=== PATIENT | female | born 1995 | race Caucasian/White ===

== ENCOUNTER 2021-05-16 00:25 | Emergency (ER) | payer OTHER ==
[~2021-05-16] VITALS: Ht 165.1 cm; Wt 68.9 kg
--- NOTE | 2021-05-16 00:25 | NUR ---
PT BIB [facility], PREBOOK. TAKEN TO CHAIR
[2021-05-16 00:29] VITALS: BP 132/89
--- NOTE | 2021-05-16 00:58 | NUR ---
Dr. Mcgraw examining patient.
--- NOTE | 2021-05-16 01:04 | NUR ---
PT TAKEN TO BED 9
[2021-05-16] MEDS ORDERED: ALBUTEROL SULFATE/IPRATROPIU 3 ML SOL IH ONE (01:05)
[2021-05-16] MEDS ORDERED: ACETAMINOPHEN EXTRA STRENGTH 500 MG TAB PO ONE (01:05)
[2021-05-16] MEDS ORDERED: methylPREDNISolone SS 125 MG/2 ML VIAL IVP ONE (01:05)
[2021-05-16 01:20] LABS: BASOPHILS # (AUTO) 0.2 K/uL (0.00-0.22); BASOPHILS % (AUTO) 2.5 % (0.0-2.0); EOSINOPHILS # (AUTO) 0.3 K/uL (0-0.4); EOSINOPHILS % (AUTO) 3.5 % (0.0-4.0); HEMATOCRIT 48.1 % (36-48); HEMOGLOBIN 16.6 g/dL (12.0-16.0); LYMPHOCYTES # (AUTO) 1.1 K/uL (2.5-16.5); LYMPHOCYTES % (AUTO) 11.8 % (20.5-51.1); MEAN CORPUSCULAR HEMOGLOBIN 31 pg (27-31); MEAN CORPUSCULAR HGB CONC 35 g/dL (33-37); MEAN CORPUSCULAR VOLUME 89.4 fL (80-94); MONOCYTES # (AUTO) 0.3 K/uL (0.8-1.0); MONOCYTES % (AUTO) 3.2 % (1.7-9.3); NEUTROPHILS # (AUTO) 7.2 K/uL (1.8-7.7); PLATELET COUNT (AUTO) 288 K/uL (140-450); RED BLOOD CELL COUNT(AUTO) 5.38 MIL/uL (4.20-5.40); RED CELL DISTRIBUTION WIDTH 13.1 % (11.6-13.7); WHITE BLOOD COUNT (AUTO) 9.1 K/uL (4.8-10.8)
--- NOTE | 2021-05-16 01:20 | NUR ---
Patient signed consent for CT scan with contrast.
--- NOTE | 2021-05-16 01:28 | NUR ---
X-Ray at bedside.
[2021-05-16 01:36] LABS: ALBUMIN 4.5 g/dL (3.4-5.0); ANION GAP 18.6 (8-16); CARBON DIOXIDE 21.4 mmol/L (21-32); CREATININE 0.8 mg/dL (0.6-1.3); TOTAL BILIRUBIN 0.3 mg/dL (0.0-1.0)
[2021-05-16] MEDS ORDERED: ALBU0.0912 IH (01:48)
[2021-05-16] MEDS ORDERED: PRED20TA5 PO (01:48)
[2021-05-16 03:57] VITALS: BP 122/72
--- NOTE | 2021-05-16 03:57 | NUR ---
Patient discharged with v/s stable. Written and verbal after care instructions given and explained. Patient alert, oriented and verbalized understanding of instructions. Ambulatory with steady gait. All questions addressed prior to discharge. ID band removed. Patient advised to follow up with PMD. Rx of Prednisone and Albuterol Sulfate given. Patient educated on indication of medication including possible reaction and side effects. Opportunity to ask questions provided and answered.
== END 2021-05-16 03:57 | disposition home or self-care (01) ==
LOC: MED 00:25
DX: J45.901 Unspecified asthma with (acute) exacerbation (principal); Z02.89 Encounter for other administrative examinations; Z79.899 Other long term (current) drug therapy; V89.2XXA Person injured in unspecified motor-vehicle accident, traffic, initial encounter; Y93.89 Activity, other specified; Y92.411 Interstate highway as the place of occurrence of the external cause; Y99.8 Other external cause status
CPT/HCPCS: 36415; 71260; 74177; 80053; 81025; 84702; 85025; 96374; 99285; G0482; J2930; Q9967; 94640